=== PATIENT | female | born 1960 | race Two or more races ===

== ENCOUNTER 2023-01-02 18:13 | Inpatient (IN) | payer SELFPAY ==
[~2023-01-02] VITALS: Ht 157.5 cm; Wt 47.2 kg
[2023-01-02 19:14] LABS: Basophils # (auto) 0.2 10 ^3/uL (0-0.2); Basophils % (auto) 1.9 % (0.0-2.0); Eosinophils # (auto) 0 10 ^3/uL (0-0.8); Eosinophils % (auto) 0.3 % (0.0-7.0); Hematocrit 47.5 % (36.0-46.0); Hemoglobin 16.8 g/dL (12.2-16.2); Lymphocytes # (auto) 1.2 10 ^3/uL (0.4-5.4); Lymphocytes % (auto) 12.1 % (10.0-50.0); Mean Corpuscular Hemoglobin 33.5 pg (28.0-32.0); Mean Corpuscular Hgb Conc. 35.5 g/dL (32.0-36.0); Mean Corpuscular Volume 94.5 fL (80.0-100.0); Monocytes # (auto) 0.7 10 ^3/uL (0-1.3); Neutrophils # (auto) 7.6 10 ^3/uL (1.6-8.6); Neutrophils % (auto) 78.7 % (37.0-80.0); Nucleated Red Blood Cells % 0.1 %; Red Blood Cells 5.02 10^6/uL (4.0-5.20); Red Cell Distribution Width 12.6 % (11.8-14.3); White Blood Cell 9.7 10^3/uL (4.4-10.8)
[2023-01-02] MEDS ORDERED: ONDANSETRON HCL 4 MG/2 ML VIAL IV ONE (19:15)
[2023-01-02] MEDS ORDERED: KETOROLAC TROMETH 30 MG/ML 1ML VIAL IV ONE (19:15)
[2023-01-02] MEDS ORDERED: SODIUM CHLORIDE 0.9% 1,000 ML IV ONE (19:15)
[2023-01-02 19:22] LABS: Urine Bacteria FEW /hpf (None Seen); Urine Blood 3+ /uL (Negative); Urine Hyaline Cast FEW /lpf (0 - 2); Urine Mucus FEW (None Seen); Urine Specific Gravity 1.034 (1.001-1.035); Urine WBC 7 /hpf (0 - 5)
[2023-01-02 19:33] LABS: Albumin 4.4 g/dL (3.4-5.0); Calcium 10.4 mg/dL (8.5-10.1); Potassium 3.5 mmol/L (3.5-5.1)
[2023-01-02 19:36] LABS: BUN/Creatinine Ratio 20.3 (10.0-20.0); Total Protein 8.7 g/dL (6.4-8.2)
[2023-01-02 19:41] LABS: INR 0.97 (0.9-1.15); Partial Thromboplastin Time 27.3 sec (24.6-33.4)
[2023-01-02] MEDS ORDERED: ASPirin 81 mg TAB PO ONE (20:30)
[2023-01-02] MEDS ORDERED: ASPirin 325 MG TAB PO ONE (20:30)
[2023-01-02 20:36] LABS: Alcohol, Urine < 3.0 mg/dL (0-10); Amphetamine Screen, Urine NEGATIVE (NEGATIVE); Barbiturate Scree,Urine NEGATIVE (NEGATIVE); Benzodiazephine Screen, Urine NEGATIVE (NEGATIVE)
[2023-01-02 20:45] LABS: Cannabinoid Screen, Urine POSITIVE (NEGATIVE); Cocaine Screen, Urine NEGATIVE (NEGATIVE); Opiate Scree,Urine NEGATIVE (NEGATIVE); Phencyclidine Screen, Urine NEGATIVE (NEGATIVE)
[2023-01-02] MEDS ORDERED: MORPHINE SULFATE INJ 2 MG/ml SYRG IV ONE (20:45)
[2023-01-02] MEDS ORDERED: ONDANSETRON HCL 4 MG/2 ML VIAL IV PRN (22:15)
[2023-01-02] MEDS ORDERED: ACETAMINOPHEN 325 MG TAB PO PRN (22:15)
[2023-01-02] MEDS ORDERED: DOCUSATE SOD 100 MG CAP PO PRN (22:15)
[2023-01-02] MEDS ORDERED: NITROGLYCERIN 0.4 MG SL TAB SL PRN (22:15)
[2023-01-02] MEDS ORDERED: HYDROcodone-ACET 5/325MG TAB PO PRN (22:15)
[2023-01-02] MEDS ORDERED: MORPHINE SULFATE INJ 2 MG/ml SYRG IV PRN ×2 (22:15)
[2023-01-03] MEDS: SODIUM CHLOR 0.9% PF (SALINE LOCK) 10ML VIAL/SYR IV SCH ×3 (05:54→23:15)
[2023-01-03 05:58] LABS: Eosinophils # (auto) 0 10 ^3/uL (0-0.8); Mean Corpuscular Volume 98.1 fL (80.0-100.0); Monocytes # (auto) 0.7 10 ^3/uL (0-1.3); Nucleated Red Blood Cells % 0.1 %; White Blood Cell 8.5 10^3/uL (4.4-10.8)
[2023-01-03 06:01] LABS: Basophils # (auto) 0.1 10 ^3/uL (0-0.2); Basophils % (auto) 0.8 % (0.0-2.0); Eosinophils % (auto) 0.1 % (0.0-7.0); Hematocrit 45.1 % (36.0-46.0); Hemoglobin 15.5 g/dL (12.2-16.2); Lymphocytes # (auto) 1.3 10 ^3/uL (0.4-5.4); Lymphocytes % (auto) 15.1 % (10.0-50.0); Mean Corpuscular Hemoglobin 33.7 pg (28.0-32.0); Mean Corpuscular Hgb Conc. 34.4 g/dL (32.0-36.0); Monocytes % (auto) 8.3 % (0.0-12.0); Neutrophils # (auto) 6.5 10 ^3/uL (1.6-8.6); Neutrophils % (auto) 75.7 % (37.0-80.0); Red Cell Distribution Width 12.6 % (11.8-14.3)
[2023-01-03 06:30] LABS: Potassium 3.2 mmol/L (3.5-5.1)
[2023-01-03 06:38] LABS: Albumin 3.8 g/dL (3.4-5.0); BUN/Creatinine Ratio 26.7 (10.0-20.0); Calcium 9.2 mg/dL (8.5-10.1); Total Protein 7.9 g/dL (6.4-8.2)
[2023-01-03] MEDS: ASPirin 81 mg TAB PO SCH (10:40)
[2023-01-03] MEDS ORDERED: amLODIPine BESYLATE 5 MG TAB PO ONE (15:00)
[2023-01-03] MEDS ORDERED: LOSARTAN POTASSIUM 25 MG TAB PO ONE (15:00)
[2023-01-03] MEDS ORDERED: hydrALAZINE HCL 20 MG/ML VL IV SCH (18:00)
[2023-01-03] MEDS ORDERED: hydrALAZINE HCL 20 MG/ML VL IV PRN (18:15)
[2023-01-03] MEDS ORDERED: ATORVASTATIN 20 MG TAB PO SCH (22:00)
[2023-01-03 22:37] VITALS: BP 124/87
[2023-01-04 05:00] VITALS: BP 134/71
[2023-01-04] MEDS: SODIUM CHLOR 0.9% PF (SALINE LOCK) 10ML VIAL/SYR IV SCH ×2 (05:45→14:00)
[2023-01-04] MEDS ORDERED: ASPI-543 PO (05:53)
[2023-01-04 09:00] VITALS: BP 148/94
[2023-01-04] MEDS ORDERED: LOSARTAN POTASSIUM 25 MG TAB PO SCH (10:00)
[2023-01-04] MEDS ORDERED: amLODIPine BESYLATE 5 MG TAB PO SCH (10:00)
[2023-01-04] MEDS: ASPirin 81 mg TAB PO SCH (11:05)
[2023-01-04] MEDS ORDERED: POTASSIUM EFFERVESENT TAB 25 MEQ GT ONE (12:15)
[2023-01-04 13:00] VITALS: BP 156/84
[2023-01-04 17:00] VITALS: BP 137/82
[2023-01-04] MEDS ORDERED: LOS25T PO (18:33)
[2023-01-04] MEDS ORDERED: AML5T PO (18:33)
[2023-01-04 19:55] VITALS: BP 137/82
[2023-01-04 21:33] VITALS: BP 110/70
== END 2023-01-04 21:36 | disposition home or self-care (01) | DRG 281 ==
LOC: ER 18:13 → TELE 22:09 → TELE-WESTW 01-03 21:50
PROVIDERS: ADMIT Nurse Practitioner Family; ATTEND Internal Medicine Pulmonary Disease
DX: I21.4 Non-ST elevation (NSTEMI) myocardial infarction (principal); N17.9 Acute kidney failure, unspecified; Z20.822 Contact with and (suspected) exposure to COVID-19; I16.0 Hypertensive urgency; R10.9 Unspecified abdominal pain
CPT/HCPCS: 36415; 71250; 74176; 80053; 80307; 81001; 83690; 84484; 85025; 85610; 85730; 87426; 93005; 93306; 96374; 96375; 96376; G0378; J1885; J2405